=== PATIENT | female | born 1950 | race Hispanic/Latino ===

== ENCOUNTER → 2022-03-26 | Outpatient (CLI) | payer MEDICARE ==
[2022-03-26 12:33] LABS: CHOLESTEROL 134 mg/dL (<200); HDL CHOLESTEROL 63 mg/dL (35-85); LDL DIRECT 55 mg/dL (0-99); TRIGLYCERIDES 136 mg/dL (30-200)
== END | disposition home or self-care (01) ==
LOC: LAB 11:21
PROVIDERS: ATTEND Internal Medicine Cardiovascular Disease
DX: E78.5 Hyperlipidemia, unspecified (principal)
CPT/HCPCS: 36415; 80061

== ENCOUNTER → 2023-01-07 | Outpatient (CLI) | payer MEDICARE | END | disposition home or self-care (01) | LOC: RAH 11:10 | PROVIDERS: ATTEND Family Medicine | DX: Z01.818 Encounter for other preprocedural examination (principal); I10 Essential (primary) hypertension | CPT/HCPCS: 71046 ==

== ENCOUNTER 2023-01-29 07:42 | Observation (INO) | payer MEDICARE ==
[2023-01-23 10:50] LABS: BASOPHILS % (AUTO) 0.3 % (0.0-5.0); EOSINOPHILS % (AUTO) 2.2 % (0.0-8.0); HEMATOCRIT 40.8 % (36-48); MEAN CORPUSCULAR HEMOGLOBIN 31.1 pg (27.0-33.0); MEAN CORPUSCULAR HGB CONC 33.1 g/dL (32.0-36.0); MONOCYTES % (AUTO) 9.1 % (3.0-13.0); NEUTROPHILS % (AUTO) 57.1 % (40.0-77.0); PLATELET COUNT (AUTO) 122 K/uL (130-400); RED BLOOD CELL COUNT(AUTO) 4.34 MIL/uL (4.00-5.50); RED CELL DISTRIBUTION WIDTH 14.6 % (11.0-15.5); WHITE BLOOD COUNT (AUTO) 3.6 K/uL (4.8-10.8)
[2023-01-23 11:19] VITALS: BP 140/70
[2023-01-29] VITALS (34 sets, daily range): BP systolic 113–148; BP diastolic 47–77
[~2023-01-29] VITALS: Ht 167.6 cm; Wt 103.3 kg
[~2023-01-29 07:42] MED LIST: AEC81 PO; ALBUTEROL SULFATE IH; BENZ200C53 PO; DULA0.75 SQ; FLUT16H NASAL; INSU300I SQ; ISOS30TA92 PO; METF-444 PO; OXYB10TA30 PO; ROSU10TA28 PO; SITA1TAB2 PO
[2023-01-29] MEDS ORDERED: 0.9%NACL 1000ML 1,000 ML IV ONE (07:58)
[2023-01-29] MEDS: CEFAZOLIN SODIUM 2 GM VIAL ONE ×2 (09:00→11:05)
[2023-01-29] MEDS ORDERED: LIDOCAINE PF 100MG/5ML (2%) SYRINGE 5ML ONE (09:56)
[2023-01-29] MEDS ORDERED: DEXAMETHASONE SOD PHOSPHATE 10MG/ML 1ML VIAL ONE (09:56)
[2023-01-29] MEDS ORDERED: SUCCINYLCHOLINE CHLORIDE 20 MG/ML 10 ML VIAL ONE (09:56)
[2023-01-29] MEDS ORDERED: GLYCOPYRROLATE 1 MG/5 ML SYRINGE ONE (09:57)
[2023-01-29] MEDS ORDERED: MIDAZOLAM HCL 1 MG/ML 2ML VIAL ONE (09:57)
[2023-01-29] MEDS ORDERED: NEOSTIGMINE 5MG/5ML SYR IV ONE (09:57)
[2023-01-29] MEDS ORDERED: ROCURONIUM 10MG/1ML SYR 10 MG/ML ML ONE (09:57)
[2023-01-29] MEDS ORDERED: PROPOFOL 10 MG/ML 20ML VIAL IV ONE (09:57)
[2023-01-29] MEDS ORDERED: ONDANSETRON 4MG INJ ONE (09:57)
[2023-01-29] MEDS ORDERED: FENTANYL CITRATE PF 50 MCG/1 ML 2ML VIAL ONE (09:57)
[2023-01-29] MEDS ORDERED: LIDOCAINE HCL-MPF 2% 10ML AMP IJ ONE (10:14)
[2023-01-29] MEDS ORDERED: ROPIVACAINE 0.5% 5MG/ML 30ML IJ ONE (10:14)
[2023-01-29] MEDS ORDERED: TRANEXAMIC ACID 1000MG/10ML ONE (10:25)
[2023-01-29] MEDS ORDERED: FLUTICASONE PROPIONATE 50MCG/SPRAY 16 GM BOTTLE NS PRN (11:00)
[2023-01-29] MEDS ORDERED: ONDANSETRON 4MG INJ IVP PRN (11:00)
[2023-01-29] MEDS ORDERED: POTASSIUM CHLORIDE 10% ELIXIR 20 MEQ/15 ML UDCUP PO PRN (11:00)
[2023-01-29] MEDS ORDERED: POTASSIUM CHLORIDE 20MEQ/100ML 100 ML IV PRN (11:00)
[2023-01-29] MEDS ORDERED: HYDROCODONE/ACETAMINOPHEN 5/325 MG TAB PO PRN (11:00)
[2023-01-29] MEDS ORDERED: HYDROCODONE/ACETAMINOPHEN 10/325 MG TAB PO PRN (11:00)
[2023-01-29] MEDS ORDERED: ALBUTEROL INHALER 90MCG/INH IH PRN (11:00)
[2023-01-29] MEDS ORDERED: BENZONATATE 100 MG CAPSULE PO PRN (11:00)
[2023-01-29] MEDS: 0.9%NACL 1000ML 1,000 ML IV SCH ×2 (11:00→21:00)
[2023-01-29] MEDS ORDERED: MORPHINE 4 MG SYG IVP PRN (11:00)
[2023-01-29] MEDS ORDERED: PHENYLEPHRINE HCL 10 MG/ML 1ML VIAL IV ONE (11:17)
[2023-01-29] MEDS ORDERED: DiphenhydrAMINE HCL 50 MG/ML VIAL ONE (11:23)
[2023-01-29] MEDS: INSULIN HUMULIN R 100 UNIT/ML 3ML SQ SCH ×3 (11:30→20:56)
[2023-01-29] MEDS: ACETAMINOPHEN 1,000 MG/100 ML VIAL IV SCH ×2 (16:14→22:18)
[2023-01-29] MEDS: CEFAZOLIN SODIUM 1 GM VIAL IVP SCH (19:53)
[2023-01-29] MEDS: IBUPROFEN 800MG + NS 250ML IV SCH (19:53)
[2023-01-29] MEDS: FAMOTIDINE 20MG TAB PO SCH (20:53)
[2023-01-29] MEDS: METFORMIN HCL 500 MG TABLET PO SCH (20:55)
[2023-01-29] MEDS: SITAGLIPTIN PHOS PO SCH (20:56)
[2023-01-29] MEDS: METFORMIN HCL PO SCH (20:56)
[2023-01-30] VITALS: BP 127/68
[2023-01-30] MEDS ORDERED: CEFAZOLIN SODIUM 2 GM VIAL ONE (02:45)
[2023-01-30] MEDS ORDERED: CEFAZOLIN SODIUM 1 GM VIAL ONE (02:50)
[2023-01-30] MEDS: CEFAZOLIN SODIUM 1 GM VIAL IVP SCH (02:51)
[2023-01-30 04:00] VITALS: BP 100/61
[2023-01-30] MEDS: IBUPROFEN 800MG + NS 250ML IV SCH ×2 (04:04→06:00)
[2023-01-30 04:52] LABS: HEMATOCRIT 36.9 % (36-48); MEAN CORPUSCULAR HEMOGLOBIN 31.5 pg (27.0-33.0); MEAN CORPUSCULAR HGB CONC 33.6 g/dL (32.0-36.0); MEAN CORPUSCULAR VOLUME 93.7 fL (79-99); RED BLOOD CELL COUNT(AUTO) 3.94 MIL/uL (4.00-5.50); RED CELL DISTRIBUTION WIDTH 14.5 % (11.0-15.5); WHITE BLOOD COUNT (AUTO) 4.5 K/uL (4.8-10.8)
[2023-01-30 05:21] LABS: CREATININE 0.8 mg/dL (0.5-1.5); POTASSIUM 3.5 mmol/L (3.5-5.1)
[2023-01-30] MEDS: ACETAMINOPHEN 1,000 MG/100 ML VIAL IV SCH (05:38)
[2023-01-30] MEDS: INSULIN HUMULIN R 100 UNIT/ML 3ML SQ SCH ×2 (06:55→12:23)
[2023-01-30 07:55] VITALS: BP 97/61
[2023-01-30] MEDS: SITAGLIPTIN PHOS PO SCH (08:00)
[2023-01-30] MEDS: METFORMIN HCL PO SCH (08:00)
[2023-01-30] MEDS ORDERED: ISOSORBIDE MONO 30MG SR TAB PO SCH (09:00)
[2023-01-30] MEDS ORDERED: INSULIN GLARGINE 100 UNITS/ML 10 ML VIAL SQ SCH (09:00)
[2023-01-30] MEDS ORDERED: POLYETHYLENE GLYCOL 3350 17 GM POWD.PACK PO SCH (09:00)
[2023-01-30] MEDS ORDERED: OXYBUTYNIN 5 MG TAB.SR.24H PO SCH (09:00)
[2023-01-30] MEDS: FAMOTIDINE 20MG TAB PO SCH (09:45)
[2023-01-30] MEDS: METFORMIN HCL 500 MG TABLET PO SCH (09:45)
[2023-01-30] MEDS: KCL 20 MEQ ERTAB PO PRN ×2 (09:45→12:23)
[2023-01-30] MEDS: 0.9%NACL 1000ML 1,000 ML IV SCH (09:46)
[2023-01-30 11:51] VITALS: BP 132/66
[2023-01-30] MEDS ORDERED: IBUPROFEN 800MG + NS 250ML IV SCH (12:00)
[2023-01-30] MEDS ORDERED: ASPIRIN 81 MG EC TAB PO SCH (21:00)
[2023-02-01] MEDS ORDERED: BISACODYL 10 MG SUPP.RECT RC PRN (11:00)
[2023-02-05] MEDS ORDERED: DULAGLUTIDE 0.75 MG SQ SCH (09:00)
== END 2023-01-30 16:50 | disposition home or self-care (01) ==
LOC: DAH 07:42 → DAHIP 07:43 → DAH 07:43 → 4AH 16:00
PROVIDERS: ADMIT Orthopaedic Surgery; ATTEND Orthopaedic Surgery
DX: M19.011 Primary osteoarthritis, right shoulder (principal); Z20.822 Contact with and (suspected) exposure to COVID-19; I10 Essential (primary) hypertension; E78.5 Hyperlipidemia, unspecified; E10.9 Type 1 diabetes mellitus without complications; J44.9 Chronic obstructive pulmonary disease, unspecified; E03.9 Hypothyroidism, unspecified; E66.01 Morbid (severe) obesity due to excess calories; Z85.72 Personal history of non-Hodgkin lymphomas; Z79.899 Other long term (current) drug therapy
CPT/HCPCS: 85025; 87426; 36415 ×2; 87641; 64415; 23472; 96376 ×2; 96365; 96366 ×2; 96375; 82948 ×6; 73030; 80048; 85027; 97161; 97530 ×2; A6260; G0378 ×27; A4663; J7030 ×2; A4215 ×2; C1776; J1200; J3010; J0690 ×3; J3490 ×3; J1100; J2710; J0330; J2001; J2250; J2704; J2405; J2795; J2370; J1741 ×3; A4649 ×4; C1713; A4223; A4222; A4221; A4600

== ENCOUNTER → 2024-04-14 | Outpatient (CLI) | payer MEDICARE ==
[~2024-04-14] MED LIST changes: -ROSU10TA28 PO; +ROSU10TA72 PO
[2024-04-14 16:25] LABS: CHOLESTEROL 149 mg/dL (<200); HDL CHOLESTEROL 69 mg/dL (35-85); LDL DIRECT 69 mg/dL (0-99); TRIGLYCERIDES 161 mg/dL (30-200)
== END | disposition home or self-care (01) ==
LOC: LAB 13:04
PROVIDERS: ATTEND Internal Medicine Cardiovascular Disease
DX: E11.9 Type 2 diabetes mellitus without complications (principal); E78.5 Hyperlipidemia, unspecified
CPT/HCPCS: 36415; 80061

== ENCOUNTER → 2024-12-08 | Outpatient (CLI) | payer OTHER ==
--- NOTE | 2024-12-08 13:50 | HMCIMG ---
CT HEART SAVER PROMOTIONAL HISTORY: Calcium scoring COMPARISON: None TECHNIQUE: Computed tomography of the heart was performed with ECG gating and suspended respiration. Postprocessing was performed on a computer workstation to obtain diastolic phase images, determine calcium score and provide a quantitative assessment of extent of disease. This CT included only the heart. HeartSaver score is 7.0. Please see cardiac calcium score report. The available CT chest images show no acute finding. CT was performed with one or more following dose reduction techniques: automated exposure control, adjustment of the mA and kv according to patient's size, or use of a iterative reconstruction technique.
== END | disposition home or self-care (01) ==
LOC: RAH 09:35
PROVIDERS: ATTEND Internal Medicine Cardiovascular Disease
DX: Z13.6 Encounter for screening for cardiovascular disorders (principal)
CPT/HCPCS: 75571

== ENCOUNTER → 2024-12-08 | Outpatient (CLI) | payer MEDICARE ==
--- NOTE | 2024-12-08 10:48 | HMCIMG ---
HIP UNILAT 2-3VW RIGHT HISTORY: Auto joint disorder COMPARISON: None TECHNIQUE: 3 images of right hip were obtained. FINDINGS: There is no acute displaced fracture or dislocation. Right hip joint space narrowing is seen. Degenerative changes are seen. IMPRESSION: 1. Findings as described above.
== END | disposition home or self-care (01) ==
LOC: RAH 09:45
PROVIDERS: ATTEND Internal Medicine Nephrology
DX: M16.11 Unilateral primary osteoarthritis, right hip (principal); M25.551 Pain in right hip
CPT/HCPCS: 73502

== ENCOUNTER → 2024-12-30 | Outpatient (CLI) | payer MEDICARE ==
--- NOTE | 2024-12-30 13:03 | HMCIMG ---
MRI LUMBAR SPINE WITHOUT CONTRAST INDICATION: Right lower extremity pain COMPARISON: None PARAMETERS: Long and short axis fat and water weighted sequences were obtained through the lumbar spine. FINDINGS: Normal lordosis of the lumbar spine is maintained. The lumbar vertebral bodies are normal in height, without evidence for acute compression fracture or osseous marrow replacing process. Multilevel mild anterior endplate osteophytic spurring. The conus medullaris is normal in signal and terminates at the appropriate level. T12-L1: No significant disc displacement, neuroforaminal narrowing, or central canal stenosis. Mild bilateral facet disease. L1-L2: No significant disc displacement, neuroforaminal narrowing, or central canal stenosis. Nominal bilateral facet disease. L2-L3: Extremely shallow left greater than right foraminal disc displacement, mild bilateral ligamentum flavum hypertrophy, and mild bilateral facet disease without any significant neuroforaminal narrowing or central canal stenosis. L3-L4: Moderate hypertrophic bilateral facet disease, mild bilateral ligamentum flavum hypertrophy, and secondary low-grade (1-2 mm) anterolisthesis of L3 upon L4 without any significant neuroforaminal narrowing or central canal stenosis. L4-L5: 2.4 cm long high T2 signal noted within the posterior disc margin. Moderate hypertrophic bilateral facet disease and secondary low-grade (1-2 mm) anterolisthesis of L4 upon L5 without any significant neuroforaminal narrowing, disc displacement, or central canal stenosis. L5-S1: Severe hypertrophic bilateral facet disease contributing to very low-grade (1 mm) anterolisthesis of L5 upon S1 without any significant neuroforaminal narrowing or central canal stenosis. No evidence for intraannular tear or discitis. The pre- and paraspinous soft tissues appear unremarkable. ANCILLARY FINDINGS: Several diverticula along the distal colon. IMPRESSION: 1. 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 2. Distal colonic diverticulosis. 3. Level by level analysis, degenerative changes, and pertinent negatives as reported.
== END | disposition home or self-care (01) ==
LOC: RAH 11:03
PROVIDERS: ATTEND Physical Medicine & Rehabilitation
DX: M47.26 Other spondylosis with radiculopathy, lumbar region (principal); M43.17 Spondylolisthesis, lumbosacral region; K57.30 Diverticulosis of large intestine without perforation or abscess without bleeding; M47.817 Spondylosis without myelopathy or radiculopathy, lumbosacral region; M25.78 Osteophyte, vertebrae; M48.061 Spinal stenosis, lumbar region without neurogenic claudication; M54.51 Vertebrogenic low back pain
CPT/HCPCS: 72148